=== PATIENT | male | born 1965 | race African-American/Black ===

== ENCOUNTER 2024-07-27 13:32 | Emergency (ER) | payer MEDICAID, SELFPAY ==
[2024-07-27 13:55] VITALS: BP 164/129; PULSE 88; RESP 21; TEMP 36.9; O2SAT 99
[2024-07-27 13:56] VITALS: PULSE 88; O2SAT 91
--- NOTE | 2024-07-27 14:00 | PC.NURSE ---
Addendum entered by Madalyn Ayers RN 07/27/24 15:39: IV IS IN LEFT HAND NOT RIGHT HAND Original Note: pt bib [facility], pt choked on food at home, EMS states pt lung sound wet per home it is normal for him, pt has contracture to upper and lower extremities, hx of CP, Scoliosis, seizure, Per EMS pt Sat 77% RA placed 6L nasal cannula sat 91%.
--- NOTE | 2024-07-27 14:23 | XR_ITS ---
Examination: AP chest single view Technique one AP portable upright chest single view Exam date and time: July 27, 2024 1433 hours INDICATIONS: Choking episode today. FINDINGS: No aspiration pneumonia. Normal heart size Again noted marked elevation right hemidiaphragm IMPRESSION: Negative for aspiration pneumonia
[2024-07-27 16:00] VITALS: BP 157/101; PULSE 91; RESP 23; TEMP 36.8; O2SAT 97
--- NOTE | 2024-07-27 16:43 | PC.NURSE ---
care provider luis called wanted to know if we need additional info advised not at the moment she stated that he had a choking episode at the home and turned blue she asked if a chest x ray was ordered advised that it was and wanting for providers orders. she advised if any additional info is needed she will be available.
--- NOTE | 2024-07-27 16:53 | PD.EDADULT ---
ED General RME/HPI General Chief complaint: General Adult/Misc Complain Stated complaint: POST CHOKING Time Seen by Provider: 07/27/24 14:17 Arrival date/time: 07/27/24 13:32 RME / HPI RME / HPI narrative: 59-year-old male with a history of developmental delay, bedbound, without PEG tube or trach, who had a choking episode on his food today. Patient is otherwise well-appearing without issues. He has a history of aspiration pneumonia therefore was sent to the emergency department for assessment. Related Data Home Medications ?Medication ?Instructions ?Recorded ?Confirmed magnesium hydroxide 400 mg/5 mL 25 ml PO QDAY #0 mL 04/21/17 02/13/23 oral suspension (Milk of Magnesia) finasteride 5 mg tablet 5 mg PO HS 07/14/18 02/13/23 levetiracetam 500 mg tablet 500 mg PO BID 07/14/18 02/13/23 acetaminophen 650 mg tablet 650 mg PO Q4H PRN temp >101F 02/13/23 02/13/23 baclofen 10 mg tablet 10 mg PO BID 02/13/23 02/13/23 calcium 600 mg (as 1 tab PO QDAY 02/13/23 02/13/23 carbonate)-vitamin D3 10 mcg (400 unit) tablet ipratropium 0.5 mg-albuterol 3 mg 3 ml inhalation Q4HR PRN Congestion 02/13/23 02/13/23 (2.5 mg base)/3 mL nebulization soln montelukast 10 mg tablet 10 mg PO QDAY 02/13/23 02/13/23 (Singulair) multivitamin,hs-gqds-Kk-FA-min 1 tab PO QDAY 02/13/23 02/13/23 omeprazole 20 mg capsule,delayed 20 mg PO BID 02/13/23 02/13/23 release Previous Rx's ?Medication ?Instructions ?Recorded clindamycin HCl 300 mg capsule 300 mg PO TID #12 caps 02/14/23 Allergies Allergy/AdvReac Type Severity Reaction Status Date / Time Penicillins Allergy Unknown Rash Verified 07/27/24 13:55 phenytoin Allergy Unknown PER CARE Verified 07/27/24 13:55 PROVIDER RECORDS Review of Systems Review of Systems Systems Reviewed: All systems reviewed, normal except as documented ED Exam Narrative Physical exam: GENERAL APPEARANCE: Awake, nonverbal, generally well-appearing, no acute distress, no respiratory distress, no upper airway sounds HEART: Normal rate and regular rhythm, normal S1/S1, no m/r/g LUNGS: CTAB, moving air well. No crackles or wheezes are heard. ABDOMEN: Soft, nontender, nondistended with good bowel sounds heard. BACK: No midline C/T/L spine pain or deformity, No CVAT, no obvious deformity. EXTREMITIES: All extremities contracted with atrophy MUSCULOSKELETAL: Significant levoscoliosis of the spine contracted NEUROLOGICAL: Grossly nonfocal. Alert responds and looks to name. CN not formally tested but appear grossly intact. Observed to ambulate with normal gait. Skin: Warm and dry without any rash. Course Quality Measures none Orders Category Date Time Status XR chest 1V Stat Exams 07/27/24 14:23 Completed Vital Signs Vital signs: Vital Signs Temperature 98.4 F 07/27/24 13:55 Pulse Rate 88 07/27/24 13:55 Respiratory Rate 21 H 07/27/24 13:55 Blood Pressure 164/129 H 07/27/24 13:55 Pulse Oximetry (%) 99 07/27/24 13:55 Oxygen Delivery Method Room Air 07/27/24 13:55 SpO2 99% on room air, patient is not hypoxic MDM Patient data External records reviewed:: [facility] previous records Clinical information provided by:: patient Social determinants that could affect healthcare access:: none Patient has the following chronic illnesses:: None How is presenting disease/condition affected by chronic disease/condition?: no chronic disease Evaluation data The following diagnostics were reviewed and interpreted by me:: radiology exam(s) Lab and/or radiology exams considered but not ordered:: None Interpretation Summary: As per narrative Medications Medications considered but not ordered:: None Medication administrations:: None Consultations Consultation(s) initiated? (list below): No Diagnosis Differential Diagnosis ED Complaint MDM: Choking episode, aspiration pneumonia, pneumonia Most likely diagnosis given after review of the tests above:: See below Admission Indicated Admission indicated?: not indicated Explain why admission is indicated or not indicated:: None Admission Request Was there a request for admission?: No Disposition Plan Disposition Plan: Discharge Discharge Attestation Discharge Attestation: The patient and all family members were given an opportunity to ask questions and understood the discharge instructions. Discharge instructions specifically effects, indications for sooner follow up or return to the emergency department, and the expected course of current diagnosis. Patient condition: Stable Medical Decision Making MDM Narrative MDM Narrative: Mr. Rich is a well-appearing gentleman, bedbound, contracted, developmentally delayed, we had a choking episode. He was monitored in the emergency department for over 4 hours without signs of respiratory difficulty or symptoms. Chest x-ray shows no acute cardiopulmonary findings, no cardiomegaly, has got significant levoscoliosis of the spine without acute bony abnormalities on my interpretation. I reviewed the radiology interpretation and agree. As he is otherwise well-appearing, asymptomatic, stable vital signs, no longer choking, and is appropriate for outpatient follow-up. Differential Diagnosis Differential Diagnosis: Choking episode, aspiration pneumonia, pneumonia Discharge Plan Plan Patient Disposition: Xfer Skilled Nsg Fac (SNF) Prescriptions/Referrals Prescriptions/Med Rec: No Action magnesium hydroxide [Milk of Magnesia] 400 mg/5 mL Suspension 25 ml PO QDAY Qty: 0 Rx Instructions: hold for loose stools levetiracetam 500 mg Tablet 500 mg PO BID finasteride 5 mg Tablet 5 mg PO HS baclofen 10 mg Tablet 10 mg PO BID omeprazole 20 mg Capsule,Delayed Release(Dr/Ec) 20 mg PO BID montelukast [Singulair] 10 mg Tablet 10 mg PO QDAY multivitamin,sq-fmpr-Wq-FA-min Tablet 1 tab PO QDAY calcium carbonate-vitamin D3 600 mg-10 mcg (400 unit) Tablet 1 tab PO QDAY ipratropium-albuterol 0.5 mg-3 mg(2.5 mg base)/3 mL Solution For Nebulization 3 ml inhalation Q4HR PRN (Reason: Congestion) Rx Instructions: q4-6hr prn acetaminophen 650 mg Tablet 650 mg PO Q4H PRN (Reason: temp >101F) clindamycin HCl 300 mg capsule 300 mg PO TID Qty: 12 0RF Referrals: Cullen Mota [Primary Care Provider] - In 1 week Problem List Clinical Impression: Choking episode Patient/Caregiver Discharge Instructions Education Materials: ED Choking First Aid Inf Additional Instructions: Follow-up with the facility provider in 1 day for recheck. You can return to the emergency department sooner symptoms worsen or if you notice any new, concerning issues. Print Language: Tanzanian Stand Alone Forms: Molly Award Info., Patient Portal Info Letter
[2024-07-27 17:00] VITALS: BP 134/90; PULSE 90; RESP 17; O2SAT 94
[2024-07-27 17:35] VITALS: TEMP 36.8
== END 2024-07-27 17:38 | disposition intermediate care facility (04) ==
PROVIDERS: Emergency Provider Emergency Medicine
DX: T17.928A Food in respiratory tract, part unspecified causing other injury, initial encounter (principal); M41.9 Scoliosis, unspecified; Z74.01 Bed confinement status; W44.F3XA Food entering into or through a natural orifice, initial encounter
CPT/HCPCS: 71045; 99283

== ENCOUNTER 2025-03-06 09:04 | Emergency (ER) | payer MEDICAID, SELFPAY ==
--- NOTE | 2025-03-06 09:07 | XR_ITS ---
Examination: AP chest single view TECHNIQUE: AP supine portable chest single view INDICATIONS: Choking coughing today. FINDINGS: Normal heart size Poor inspiratory effort Moderate vascular congestion. No aspiration pneumonia IMPRESSION: No aspiration pneumonia
--- NOTE | 2025-03-06 09:16 | EDNOTE_ITS ---
<Statement entered by Jagruti Gan MD - 03/06/25 17:42> I, Jagruti Gan MD, have reviewed the history, exam, and assessment of the patient. I have evaluated the patient independently and agree with the plan of care documented by [ ]. All diagnostic studies were reviewed and discussed. I confirm the diagnosis as documented by the Resident. I was present during the Medical Decision Making for this patient. The patient's plan of care was created between myself and the Resident and consistent with our discussion of the patient's case. ED SOB =RME/HPI General Chief Complaint: Shortness of Breath/Dyspnea Stated Complaint: CHOKING Time Seen by Provider: 03/06/25 09:10 Source: EMS Arrival date/time: 03/06/25 09:04 Mode of arrival: EMS RME / HPI RME / HPI Narrative: Mr. Rich is a 60-year-old male with past medical history of seizures, cerebral palsy, developmental delay GERD, BPH, scoliosis, seasonal allergies, osteoporosis and spasticity who presented to [facility] emergency department on March 06, 2025 with a chief complaint of aspiration. Patient patient unable to provide history, history obtained from EMS per EMS patient had an episode of choking on his food earlier this morning at the long-term, brought to the ED with supplemental oxygen, requiring 6 L initially however eventually down titrated to room air. Patient's medication list and documentation from long-term reviewed. Related Data Home Medications ?Medication ?Instructions ?Recorded ?Confirmed finasteride 5 mg tablet 5 mg PO HS 07/14/18 03/06/25 levetiracetam 500 mg tablet 500 mg PO BID 07/14/18 acetaminophen 650 mg tablet 650 mg PO Q4H PRN temp >10 1F 02/13/23 03/06/25 baclofen 10 mg tablet 10 mg PO BID 02/13/23 calcium 600 mg (as 1 tab PO QDAY 02/13/2303/06 carbonate)-vitamin D3 10 mcg (400 unit) tablet montelukast 10 mg tablet 10 mg PO QDAY 02/13/2303/06 (Singulair) multivitamin,dc-pdos-In-FA-min 1 tab PO QDAY 02/13/23 03/06/25 omeprazole 20 mg capsule,delayed 20 mg PO BID 02/13/23 03/06/25 release bisacodyl 10 mg rectal suppository 10 mg RI QDAY PRN c onstipation 03/06/25 03/06/25 fluticasone propionate 50 1 spray intranasal QDAY 02/2003/06/25 mcg/actuation nasal spray,suspension (Aller-Zozy) polyethylene glycol 3350 17 4 g PO QDAY 03/06/2503/06 gram/dose oral powder Allergies Allergy/AdvReac Type Severity Reaction Status Date / Time Penicillins Allergy Unknown Rash Verified 07/27/24 13:55 phenytoin Allergy Unknown PER CARE Verified 07/27/24 13:55 PROVIDER RECORDS Review of Systems Review of Systems Systems Reviewed: All systems reviewed, normal except as documented Past Medical History Past Medical History Comments PMH COMMENT: PMH: Cerebral palsy severe, seizure disorder, scoliosis, functional quadriplegia Family history: Unobtainable Social history: Patient lives at a long-term and is assisted by caregivers. Patient's mother visits him twice every year. Surgical history: Hip surgery ED Exam Narrative Physical exam: Physical Exam General: Awake and in mild acute distress appears to be in discomfort. HEENT: Normocephalic, atraumatic, mucous membranes moist. Heart: Sinus tachycardia, no murmurs. Lungs: Bilateral crackles and coarse breath sounds, increased secretions Abdomen: Soft, nondistended, nontender, positive bowel sounds. ?No guarding or rebound tenderness. Scoliosis noted. Neurologic: Alert and oriented x3, no gross neurological deficit, and patient able to move all 4 extremities. Extremities: Spastic extremities, no edema. Skin: No rash or ecchymoses. Course Course Course Narrative: Patient presented with chief complaint of aspiration Patient noted to be tachycardic was given 1 L NS bolus also given morphine 2 mg x 1 as patient seemed to be in pain Patient initially on supplemental oxygen however weaned off stable on room air Chest x-ray obtained shows no evidence of aspiration pneumonia CBC WBC 9.6, hemoglobin 14.3 platelet 294 CMP sodium 138, potassium 4.1, chloride 101, bicarb 26.9, anion gap 10, BUN 12, creatinine 0.5, GFR greater than 60, glucose 125, lactate elevated at 3.2, magnesium 1.9, calcium 9.4, AST 43, ALT 31, Pro-Zen 0.13 No evidence of aspiration pneumonia Patient's blood pressure elevated at 172/140 and repeat elevated at 185/160 patient was given 0.1 mg clonidine and 10 mg of labetalol Blood pressure gradually improved, blood pressure on discharge 139/130 Case discussed with reinforced concrete inspector at bedside, patient at his baseline mentation per reinforced concrete inspector. Informed reinforced concrete inspector about elevated blood pressure readings, will check blood pressure every day outpatient and follow-up with PCP. Quality Measures none Orders Category Date Time Status Letterset Press Set Up Operator Q4H START 00 Care 03/06/25 09:08 Completed Continuous Pulse Oximetry NOW Care 03/06/25 09:08 Completed Insert [Insert IV] NOW Care 03/06/25 09:09 Completed Referral Respiratory Therapy Stat Cons 03/06/25 09:14 Active CXRP [XR chest 1V portable] Stat Exams 03/06/25 09:07 Completed CBC Stat Lab 03/06/25 09:32 Completed CMP [Comprehensive Metabolic Panel] Stat Lab 03/06/25 09:32 Completed Lactate (Lactic Acid) Stat Lab 03/06/25 09:32 Completed Mag [Magnesium] Stat Lab 03/06/25 09:32 Completed Procalcitonin Stat Lab 03/06/25 09:32 Completed Labetalol IV [Trandate IV] Med 03/06/25 12:16 Discontinued 10 mg IVP X1 ONE Morphine* Inj Med 03/06/25 09:17 Discontinued 2 mg IVP X1 ONE Sodium Chloride 0.9% 1000 ml [Ns] 1,000 ml Med 03/06/25 09:14 Discontinued IV 999 mls/hr cloNIDine HCL [Catapres] Med 03/06/25 10:59 Discontinued 0.1 mg PO X1 ONE Airway suctioning ONCE RT 03/06/25 09:29 Completed Chest Physiotherapy Treatment NOW RT 03/06/25 09:19 Completed Oxygen Delivery PRN RT 03/06/25 09:15 Completed Vital Signs Vital signs: Vital Signs Temperature 97.6 F 03/06/25 09:39 Pulse Rate 100 03/06/25 09:39 Respiratory Rate 30 H 03/06/25 09:39 Blood Pressure 160/136 H 03/06/25 09:39 Pulse Oximetry (%) 97 03/06/25 09:39 Oxygen Delivery Method Room Air 03/06/25 09:39 Shortness of Breath / Dyspnea MDM Narrative MDM Narrative:: #Aspiration event, rule out aspiration pneumonia #Dehydration #Hypertensive urgency Patient presented with concern of aspiration event from home, episode witnessed by reinforced concrete inspector earlier this morning during breakfast Chest x-ray obtained negative for aspiration pneumonia, CBC CMP relatively benign, patient saturating well on room air does have increased secretions and spits voluntarily at times Discussed with reinforced concrete inspector who states patient's baseline Was given chest PT treatment and was deep suctioned by RT Patient's blood pressure elevated at 172/140 and repeat elevated at 185/160 patient was given 0.1 mg clonidine and 10 mg of labetalol Blood pressure gradually improved, blood pressure on discharge 139/130 Case discussed with reinforced concrete inspector at bedside, patient at his baseline mentation per reinforced concrete inspector. Informed reinforced concrete inspector about elevated blood pressure readings, will check blood pressure every day outpatient and follow-up with PCP. Case discussed with Attending Physician Dr. Malik Mack MD Internal Medicine PGY-2 Disclaimer: This note was dictated by speech recognition. Minor errors in deputy sheriff building guard may be present due to voice recognition software. Patient data External records reviewed:: [facility] previous records Clinical information provided by:: patient Social determinants that could affect healthcare access:: none Patient has the following chronic illnesses:: As Above How is presenting disease/condition affected by chronic disease/condition?: caused by Evaluation data The following diagnostics were reviewed and interpreted by me:: lab results and radiology exam(s) Lab and/or radiology exams considered but not ordered:: None Interpretation Summary: Chest x-ray obtained shows no evidence of aspiration pneumonia CBC WBC 9.6, hemoglobin 14.3 platelet 294 CMP sodium 138, potassium 4.1, chloride 101, bicarb 26.9, anion gap 10, BUN 12, creatinine 0.5, GFR greater than 60, glucose 125, lactate elevated at 3.2, magnesium 1.9, calcium 9.4, AST 43, ALT 31, Pro-Zen 0.13 Medications / Prescriptions Medications or Prescriptions considered but not ordered:: None Medication administrations:: Medication Administration History Discontinued Medications Clonidine (Clonidine Hcl 0.1 Mg Tablet) 0.1 mg PO X1 ONE Stop: 03/06/25 11:00 Last Admin: 03/06/25 11:51 Dose: 0.1 mg Documented By: NOEL Sodium Chloride (Ns) 1,000 mls @ 999 mls/hr IV .Q1H1M ONE Stop: 03/06/25 10:14 Last Infusion: 03/06/25 11:57 Dose: Infused Documented By: Admin: 03/06/25 09:43 Dose: 999 mls/hr Documented By: NOEL Labetalol HCl (Labetalol Inj 5 Mg/Ml Vial 20 Ml) 10 mg IVP X1 ONE Stop: 03/06/25 12:17 Last Admin: 03/06/25 12:45 Dose: 10 mg Documented By: NOEL Morphine Sulfate (Morphine Sulf Inj 4 Mg/Ml Vial) 2 mg IVP X1 ONE Stop: 03/06/25 09:18 Last Admin: 03/06/25 09:38 Dose: 2 mg Documented By: NOEL As Above Consultations Consultation(s) initiated? (list below): No Diagnosis Shortness of Breath Differential Diagnosis: other Most likely diagnosis given after review of the tests above:: Hypertensive Urgency Dehydration Admission Indicated Admission indicated?: not indicated Admission Request Was there a request for admission?: No Disposition Plan Disposition Plan: Discharge Discharge Attestation Discharge Attestation: The patient and all family members were given an opportunity to ask questions and understood the discharge instructions. Discharge instructions specifically effects, indications for sooner follow up or return to the emergency department, and the expected course of current diagnosis. Patient condition: Stable Discharge Plan Plan Patient Disposition: HOME (Self Care) Patient condition on transfer: Stable Health Concerns: - You were seen in the emergency department due to concern of aspiration at and possible pneumonia, your chest x-ray was negative for any signs of aspiration, you do not have a elevated white count or other signs of infection however you were dehydrated so 1 L of IV fluid was given. - You did have multiple elevated blood pressure readings for which you were given oral clonidine and IV labetalol, as you do not have a diagnosis of hypertension we highly recommend checking your blood pressure daily and following up with your primary care physician. - Continue all other medications which you take at home - Take dysphagia precautions, follow-up with speech therapy outpatient obtain further dysphagia workup if this continues to be a concern. - Follow-up with your primary care physician in 1 week - Return to emergency department if your symptoms worsen. Prescriptions/Referrals Prescriptions/Med Rec: Continued levetiracetam 500 mg Tablet 500 mg PO BID finasteride 5 mg Tablet 5 mg PO HS baclofen 10 mg Tablet 10 mg PO BID omeprazole 20 mg Capsule,Delayed Release(Dr/Ec) 20 mg PO BID montelukast [Singulair] 10 mg Tablet 10 mg PO QDAY multivitamin,zd-hvnr-Hl-FA-min Tablet 1 tab PO QDAY calcium carbonate-vitamin D3 600 mg-10 mcg (400 unit) Tablet 1 tab PO QDAY acetaminophen 650 mg Tablet 650 mg PO Q4H PRN (Reason: temp >101F) fluticasone propionate [Aller-Ozzy] 50 mcg/actuation spray,suspension 1 spray intranasal QDAY Rx Instructions: administer into each nostril polyethylene glycol 3350 17 gram/dose powder 4 g PO QDAY bisacodyl 10 mg suppository 10 mg RI QDAY PRN (Reason: constipation) Referrals: No Primary/Family,Physician [Referring Provider] - In 1 week Problem List Clinical Impression: Hypertensive urgency Patient/Caregiver Discharge Instructions Discharge Activity: activity as tolerated Education Materials: Dysphagia Diet- Managing Foods, ED Hypertension, To Be Confirmed Print Language: Maldivian Stand Alone Forms: Molly Award Info., Patient Portal Info Letter
[2025-03-06] MEDS: MORPHINE SULF INJ 4 MG/ML VIAL 2 MG IVP (09:38)
[2025-03-06 09:39] VITALS: BP 160/136; PULSE 100; RESP 30; TEMP 36.4; O2SAT 97
[2025-03-06 09:42] LABS: Lactate (Lactic Acid) 3.2 mMol/L (0.4-2.0)
[2025-03-06] MEDS: SODIUM CHLORIDE 0.9% 1000 ML 1,000 ML 999 ML IV (09:43)
[2025-03-06 09:53] LABS: Basophils # (Auto) 0.1 Thou/mm3 (0.0-0.2); Basophils % (Auto) 1 % (0-2.5); Eosinophils # (Auto) 0.4 Thou/mm3 (0.0-0.5); Eosinophils % (Auto) 5 % (0-10); Hematocrit 43.1 % (41.0-53.0); Hemoglobin 14.3 g/dL (13.5-16.0); Immature Granulocytes Auto 0.02 Thou/mm3 (0.00-0.00); Lymphocytes # (Auto) 2.0 Thou/mm3 (1.0-4.8); Lymphocytes % (Auto) 21 % (10-50); Mean Corpuscular HGB Conc 33.2 g/dl (31.0-37.0); Mean Corpuscular Hemoglobin 29.0 pg (25.0-35.0); Mean Corpuscular Volume 87 fL (80-100); Monocytes # (Auto) 0.5 Thou/mm3 (0.0-0.8); Monocytes % (Auto) 5 % (0-12); Neutrophils # (Auto) 6.6 Thou/mm3 (1.8-7.7); Neutrophils % (Auto) 69 % (37-80); Nucleated Red Blood Cell # 0.00 Thou/mm3 (0.00-0.00); Nucleated Red Blood Cell % 0 /100 WBC (0); Platelet Count 294 Thou/mm3 (140-440); RDW Standard Deviation 45.3 fL (35.1-43.9); Red Blood Count 4.93 Miln/mm3 (4.50-5.90); White Blood Count 9.6 Thou/mm3 (3.8-10.6)
[2025-03-06 10:15] LABS: Alanine Aminotransferase 31 U/L (10-49); Albumin, Serum 4.4 gm/dL (3.4-4.8); Albumin/Globulin Ratio 1.7 (1.2-2.2); Alkaline Phosphatase 121 U/L (46-116); Anion Gap 10 (7-16); Aspartate Amino Transferase 43 U/L (0-34); BUN/Creatinine Ratio 24 Ratio (12-20); Bilirubin,Total 0.6 mg/dL (0.3-1.2); Blood Urea Nitrogen 12 mg/dL (9-23); Calcium 9.4 mg/dL (8.3-10.6); Calcium (Corrected) 9.4 mg/dL (8.5-10.1); Carbon Dioxide 26.9 mMol/L (20.0-31.0); Chloride 101 mMol/L (98-107); Creatinine (Component) 0.5 mg/dL (0.6-1.3); Globulin 2.6 gm/dL (2.3-3.5); Glucose 125 mg/dL (74-106); Magnesium 1.9 mg/dL (1.6-2.6); Osmolality,Calculated 276 (275-295); Potassium 4.1 mMol/L (3.4-5.1); Procalcitonin 0.13 ng/ml (0.0-0.49); Sodium 138 mMol/L (136-145); Total Protein 7.0 gm/dL (5.7-8.2); eGFR > 60 See Note
[2025-03-06 11:51] VITALS: BP 172/140; PULSE 89
[2025-03-06 12:39] VITALS: PULSE 79
[2025-03-06 12:40] VITALS: BP 185/160; PULSE 84; RESP 29; O2SAT 96
[2025-03-06 12:40] LABS: Reflex Lactate? Y
[2025-03-06 12:45] VITALS: BP 185/160; PULSE 85
[2025-03-06] MEDS: LABETALOL INJ 5 MG/ML VIAL 20 ML 10 MG IVP (12:45)
[2025-03-06 14:13] VITALS: BP 139/113; PULSE 74; RESP 17; O2SAT 96
== END 2025-03-06 14:14 | disposition home or self-care (01) ==
PROVIDERS: Emergency Provider Emergency Medicine; PCP Family Medicine
DX: I16.0 Hypertensive urgency (principal); R03.0 Elevated blood-pressure reading, without diagnosis of hypertension; E86.0 Dehydration; R09.89 Other specified symptoms and signs involving the circulatory and respiratory systems; R05.9 Cough, unspecified
CPT/HCPCS: 36415; 71045; 80053; 83605; 83735; 84145; 85025; 96361; 96374; 96375; 99284; J2270; J3490; J7030; A9270; J1920